=== PATIENT | female | born 1945 ===

== ENCOUNTER 2023-02-25 06:15 | Day surgery (SDC) | payer OTHER ==
[2023-02-27] MEDS ORDERED: LANTUS SOL100 UNIT/1 (12:58)
[2023-02-27] MEDS ORDERED: JARDIANCE10 MG (12:58)
[2023-02-27] MEDS ORDERED: ANASTROZOLE1 MG (12:59)
[2023-02-27] MEDS ORDERED: GLUMETZA500 MG (12:59)
[2023-02-27] MEDS ORDERED: PEPCID AC20 MG (12:59)
[2023-02-27] MEDS ORDERED: PLAVIX75 MG (12:59)
[2023-02-27] MEDS ORDERED: ZESTRIL10 M1 (12:59)
== END 2023-02-25 09:25 | disposition home or self-care (01) ==
LOC: AMB-ENDOS 06:15
PROVIDERS: ATTEND Colon & Rectal Surgery
DX: K57.30 Diverticulosis of large intestine without perforation or abscess without bleeding (principal); R19.4 Change in bowel habit; Z20.822 Contact with and (suspected) exposure to COVID-19; K64.9 Unspecified hemorrhoids

== ENCOUNTER → 2023-02-27 | Emergency (ER) | payer OTHER ==
[~2023-02-27] VITALS: Ht 152.4 cm; Wt 72.1 kg
[~2023-02-27] MED LIST: ANASTROZOLE1 MG; GLUMETZA500 MG; JARDIANCE10 MG; LANTUS SOL100 UNIT/1; PEPCID AC20 MG; PLAVIX75 MG; ZESTRIL10 M1
== END | disposition designated cancer center or children's hospital (05) ==
LOC: ER 12:34
DX: R00.1 Bradycardia, unspecified (principal); E11.9 Type 2 diabetes mellitus without complications; Z79.4 Long term (current) use of insulin; I44.2 Atrioventricular block, complete